=== PATIENT | female | born 1980 | race Hispanic/Latino ===

== ENCOUNTER 2016-05-26 14:35 | Emergency (ER) | payer MEDICAID ==
--- NOTE | 2016-05-26 15:03 | Emergency Department Report ---
Chief Complaint: Psych Stated Complaint: THREATENING Time Seen by Provider: 05/26/16 14:59 - HPI History of Present Illness: Patient is a 35 y/o female who was dropped off by a family friend due for drug addiction, patient states that she needs to go to rehab. Patient denies any suicidal or homicidal ideation. Patient states that he has knee pain. - ROS Review of Systems: patient denies any suicidal or homicidal ideation - Exam Vital Signs: Vital Signs 05/26/16 14:43 Temperature 98.6 F Pulse Rate 96 H Respiratory 18 Rate Blood Pressure 125/76 O2 Sat by Pulse 100 Oximetry Physical Exam: patient had pressured speech, flight of ideas, word salad MSE screening note: Focused history and physical exam performed. Due to findings the following was ordered: ED Disposition for MSE Condition: Stable
[2016-05-26 15:49] LABS: Basophils % (Auto) 0.3 % (0.0-1.8); Eosinophils % (Auto) 0.1 % (0.0-4.3); Hematocrit 41.9 % (30.3-42.9); Mean Corpuscular HGB Conc 33 % (30-34); Mean Corpuscular Hemoglobin 29 pg (28-32); Mean Corpuscular Volume 87 fl (79-97); Platelet Count 263 K/mm3 (140-440); Red Blood Count 4.83 M/mm3 (3.65-5.03); Red Cell Distribution Width 14.1 % (13.2-15.2); White Blood Count 10.3 K/mm3 (4.5-11.0)
[2016-05-26 16:13] LABS: Alanine Aminotransferase 16 units/L (7-56); Albumin 4.5 g/dL (3.9-5); Albumin/Globulin Ratio 1.7 %; Alkaline Phosphatase 64 units/L (35-129); BUN/Creatinine Ratio 11.25; Bilirubin,Total 0.5 mg/dL (0.1-1.2); Blood Urea Nitrogen 9 mg/dL (7-17); Calcium 9.1 mg/dL (8.4-10.2); Carbon Dioxide 22 mmol/L (22-30); Chloride 101.9 mmol/L (98-107); Glucose 95 mg/dL (65-100); Potassium 3.8 mmol/L (3.6-5.0); Sodium 141 mmol/L (137-145); Total Protein 7.2 g/dL (6.3-8.2)
[2016-05-26 16:27] LABS: Anion Gap 21 mmol/L
--- NOTE | 2016-05-26 16:30 | Emergency Department Report ---
ED Psych HPI - General Chief Complaint: Psych Stated Complaint: THREATENING Time Seen by Provider: 05/26/16 16:03 Source: patient Mode of arrival: Ambulatory Limitations: No Limitations - History of Present Illness Initial Comments: 35-year-old female presents to the emergency department for mental health evaluation. Patient states that she was brought to the emergency department by someone she lives with, but she does not know why. Since arriving in the emergency department patient states that her mind feels numb and she cannot think. She states her son has been kidnapped and her brother is also missing. She states she wants rehabilitation from narcotics. Patient has no other complaints. Review of nursing notes show that the patient was brought to the emergency department by her landlord after threatening behavior. Reportedly the patient has a history of drug addiction. Upon arrival to the emergency department patient through her Depakote and Cogentin into the trashcan. She reportedly told the nurse that she needed "a needle with a bag" and "I need some drugs". -: unknown Associated Psychiatric Symptoms: racing thoughts, delusions History of same: Yes Quality: constant Improves With: none Worsens With: none Context: not taking psychiatric Associated Symptoms: denies other symptoms Treatments Prior to Arrival: none - Related Data Home Medications Medication Instructions Recorded Confirmed Last Taken Benztropine [Cogentin] 1 mg PO BID 05/26/16 05/26/16 Unknown Divalproex ER [Depakote ER] 1,000 mg PO QHS 05/26/16 05/26/16 Unknown Allergies Allergy/AdvReac Type Severity Reaction Status Date / Time No Known Allergies Allergy Verified 09/06/15 15:40 ED Review of Systems ROS: Stated complaint: THREATENING Other details as noted in HPI Comment: All other systems reviewed and negative Psychiatric: as per HPI. denies: homicidal thoughts, suicidal thoughts ED Past Medical Hx - Past Medical History Previous Medical History?: Yes Hx CVA: Yes Hx Liver Disease: Yes (Hep C) Hx Psychiatric Treatment: Yes (anxiety/depression/ BIPOLAR/PARANOID SCHIZOPHRENIA) Additional medical history: back pain - Surgical History Past Surgical History?: No - Family History Family history: no significant - Social History Smoking Status: Current Every Day Smoker Substance Use Type: Alcohol, Marijuana, Tranquilizers, Methamphetamines - Medications Home Medications: Home Medications Medication Instructions Recorded Confirmed Last Taken Type Benztropine [Cogentin] 1 mg PO BID 05/26/16 05/26/16 Unknown History Divalproex ER [Depakote ER] 1,000 mg PO QHS 05/26/16 05/26/16 Unknown History ED Physical Exam - General Limitations: No Limitations General appearance: alert, in no apparent distress - Head Head exam: Present: atraumatic, normocephalic - Eye Eye exam: Present: normal appearance, PERRL, EOMI - ENT ENT exam: Present: normal exam, normal orophraynx, mucous membranes moist - Neck Neck exam: Present: normal inspection, full ROM. Absent: tenderness - Respiratory Respiratory exam: Present: normal lung sounds bilaterally. Absent: respiratory distress - Cardiovascular Cardiovascular Exam: Present: regular rate, normal rhythm, normal heart sounds - GI/Abdominal GI/Abdominal exam: Present: soft, normal bowel sounds. Absent: distended, tenderness - Extremities Exam Extremities exam: Present: normal inspection, full ROM. Absent: tenderness - Back Exam Back exam: Present: normal inspection, full ROM. Absent: tenderness - Neurological Exam Neurological exam: Present: alert, oriented X3. Absent: motor sensory deficit - Psychiatric Psychiatric exam: Present: flat affect, other (active delusions, tangential thoughts). Absent: homicidal ideation, suicidal ideation - Skin Skin exam: Present: warm, dry, intact ED Course Vital Signs 05/26/16 05/26/16 05/26/16 14:43 17:16 17:18 Temperature 98.6 F 98.5 F Pulse Rate 96 H 90 Respiratory 18 20 16 Rate Blood Pressure 125/76 Blood Pressure 123/78 [Right] O2 Sat by Pulse 100 99 Oximetry - Reevaluation(s) Reevaluation #1: 05/26/16 16:30 During the interview, patient was asked her medical history. Patient states that she has no medical history except for history of ovarian cancer which was subsequent removed. There is no evidence or record of any cancer. Patient does have a history of schizoaffective disorder. Obtaining labs. At this time , I feel the patient is a risk to her personal safety due to her delusions and disordered thought processes. Form 1013 will be signed and placed on the patient's chart. Patient will need mental health evaluation. Reevaluation #2: 05/26/16 17:43 Lab results reviewed. Patient has been medically cleared. Mental health has evaluated the patient and is currently seeking placement. ED Medical Decision Making - Lab Data Result diagrams: 05/26/16 15:37 05/26/16 15:37 - Differential Diagnosis bipolar disorder, schizoaffective disorder, medication noncompliance Critical care attestation.: If time is entered above; I have spent that time in minutes in the direct care of this critically ill patient, excluding procedure time. ED Disposition Clinical Impression: Acute psychosis Disposition: DC/TX PSY HOSP/PSY UNIT Is pt being admited?: No Condition: Stable Time of Disposition: 17:43
[2016-05-26 17:05] LABS: Urine Drugs of Abuse Note Disclamer
[2016-05-26 17:25] LABS: Bilirubin,Urine NEG (Negative); Blood,Urine NEG (Negative); Ketones,Urine TR mg/dL (Negative); Leukocyte Esterase,Urine LG (Negative); Mucus,Urine 3+ /HPF; Nitrite,Urine NEG (Negative)
[2016-05-26] MEDS ORDERED: HALDOL IM ONE (17:41)
--- NOTE | 2016-05-27 07:50 | Event Note ---
Date: 05/27/16 Vital signs reviewed. Patient with psychiatric placement. Urinalysis appreciated, it is contaminated, and as per the initial history and physical, no urinary symptoms. Vital Signs 05/26/16 05/26/16 05/26/16 14:43 17:16 17:18 Temperature 98.6 F 98.5 F Pulse Rate 96 H 90 Respiratory 18 20 16 Rate Blood Pressure 125/76 Blood Pressure 123/78 [Right] O2 Sat by Pulse 100 99 Oximetry 05/27/16 05:35 Temperature Pulse Rate Respiratory 20 Rate Blood Pressure Blood Pressure [Right] O2 Sat by Pulse 100 Oximetry
[2016-05-28 14:04] VITALS: BP 103/48
== END 2016-05-28 17:16 ==
LOC: ED 14:35 → EEVIPCON 14:35 → ED 05-28 17:16
DX: F23 Brief psychotic disorder (principal); Z86.73 Personal history of transient ischemic attack (TIA), and cerebral infarction without residual deficits; Z86.19 Personal history of other infectious and parasitic diseases; F31.9 Bipolar disorder, unspecified; F20.9 Schizophrenia, unspecified; F17.200 Nicotine dependence, unspecified, uncomplicated; F12.10 Cannabis abuse, uncomplicated; F15.10 Other stimulant abuse, uncomplicated
CPT/HCPCS: 36415; 80053; 80164; 80307; 81001; 81025; 85025; 96372; 99285; G0480; J1630; 80320